=== PATIENT | female | born 1960 | race Caucasian/White ===

== ENCOUNTER 2016-07-21 11:08 | Emergency (ER) | END 2016-07-21 15:00 | disposition home or self-care (01) | DX: M54.2 Cervicalgia (principal); I10 Essential (primary) hypertension; E11.9 Type 2 diabetes mellitus without complications | CPT/HCPCS: 70450; 72125; 93005; Z7502; Z7610 ==

== ENCOUNTER 2018-12-13 16:47 | Emergency (ER) | payer BC ==
[~2018-12-13] VITALS: Ht 160 cm; Wt 77.2 kg
[~2018-12-13 16:47] MED LIST: CEPH-443 PO; CYCL10TA7 PO
[2018-12-13 16:51] VITALS: Ht 160 cm; Wt 77.2 kg
--- NOTE | 2018-12-13 19:05 | ERD ---
ER Documentation Chief Complaint Chief Complaint chest pain today , feels her pressure is low , rt foot numbness x few days HPI 58-year-old woman here with multiple complaints including left-sided chest pain sharp, nonradiating nonexertional beginning today associated with some dizziness, it was unprovoked and resolved spontaneously after about 10 minutes. She is also here with complaints of paresthesias to her legs bilaterally and pain in her hands throughout the day times a few months. She has had no weight loss, no fevers or chills, no cough, no URI symptoms, no abdominal pain, no vomiting or diarrhea ROS All systems reviewed and are negative except as per history of present illness. Medications Home Meds Active Scripts Cephalexin* (Keflex*) 500 Mg Capsule, 500 MG PO TID for 7 Days, CAP Prov:LOUIE SEO MD 12/13/18 Cyclobenzaprine Hcl* (Cyclobenzaprine Hcl*) 10 Mg Tablet, 10 MG PO TID PRN for PAIN, #15 TAB Prov:ISHMAEL ANDERSON 07/21/16 Allergies Allergies: Coded Allergies: No Known Allergies (Verified Allergy, Unknown, 12/13/18) PMhx/Soc Hypertension diabetes History of Surgery: No Anesthesia Reaction: No Hx Neurological Disorder: No Hx Respiratory Disorders: No Hx Cardiac Disorders: Yes (HTN) Hx Psychiatric Problems: No Hx Miscellaneous Medical Probl: Yes (DIABETES) Hx Alcohol Use: No Hx Substance Use: No Hx Tobacco Use: No FmHx Family History: No diabetes Physical Exam Vitals Vital Signs Date Temp Pulse Resp B/P (MAP) Pulse Ox O2 O2 Flow FiO2 Time Delivery Rate 12/13/18 84 18 115/63 100 Room Air 20:00 (80) 12/13/18 98.7 82 18 140/81 99 Room Air 19:25 (100) 12/13/18 98.7 92 18 147/70 99 16:51 (95) Physical Exam Const: No acute distress, afebrile, well-developed will nourished Resp: Clear to auscultation bilaterally Cardio: Regular rate and rhythm, no murmurs Abd: Soft, non tender, non distended. Normal bowel sounds Skin: No petechiae or rashes, no lacerations or hematomas Back: No midline or flank tenderness Ext: No cyanosis, or edema, calves symmetrical, distal pulses equal bilateral, Neur: Awake and alert x3, no focal deficits or facial asymmetry, pupils equal round reactive to light Psych: Normal Mood and Affect Result Diagram: 12/13/18191212/13/181912 Results 24 hrs Laboratory Tests Test 12/13/18 19:13 White Blood Count 10.4 10^3/ul Red Blood Count 4.97 10^6/ul Hemoglobin 14.5 g/dl Hematocrit 44.4 % Mean Corpuscular Volume 89.3 fl Mean Corpuscular Hemoglobin 29.2 pg Mean Corpuscular Hemoglobin Concent 32.7 g/dl Red Cell Distribution Width 13.0 % Platelet Count 303 10^3/UL Mean Platelet Volume 10.9 fl Immature Granulocytes % 0.300 % Neutrophils % 51.3 % Lymphocytes % 39.8 % Monocytes % 6.7 % Eosinophils % 1.2 % Basophils % 0.7 % Nucleated Red Blood Cells % 0.0 /100WBC Immature Granulocytes # 0.030 10^3/ul Neutrophils # 5.3 10^3/ul Lymphocytes # 4.1 10^3/ul Monocytes # 0.7 10^3/ul Eosinophils # 0.1 10^3/ul Basophils # 0.1 10^3/ul Nucleated Red Blood Cells # 0.0 10^3/ul Urine Color YELLOW Urine Clarity CLOUDY Urine pH 7.0 Urine Specific Cadet 1.011 Urine Ketones NEGATIVE mg/dL Urine Nitrite NEGATIVE mg/dL Urine Bilirubin NEGATIVE mg/dL Urine Urobilinogen NEGATIVE mg/dL Urine Leukocyte Esterase 2+ Barbi/ul Urine Microscopic RBC 1 /HPF Urine Microscopic WBC 12 /HPF Urine Squamous Epithelial Cells MANY /HPF Urine Amorphous Crystals MODERATE /HPF Urine Bacteria FEW /HPF Urine Hemoglobin NEGATIVE mg/dL Urine Glucose NEGATIVE mg/dL Urine Total Protein NEGATIVE mg/dl Sodium Level 139 mmol/L Potassium Level 4.2 mmol/L Chloride Level 101 mmol/L Carbon Dioxide Level 29 mmol/L Anion Gap 9 Blood Urea Nitrogen 15 mg/dl Creatinine 0.62 mg/dl Est Glomerular Filtrat Rate mL/min > 60 mL/min Glucose Level 101 mg/dl Calcium Level 9.9 mg/dl Total Bilirubin 0.5 mg/dl Direct Bilirubin 0.00 mg/dl Indirect Bilirubin 0.5 mg/dl Aspartate Amino Transf (AST/SGOT) 22 IU/L Alanine Aminotransferase (ALT/SGPT) 35 IU/L Alkaline Phosphatase 70 IU/L Troponin I < 0.012 ng/ml Total Protein 8.3 g/dl Albumin 4.8 g/dl Globulin 3.50 g/dl Albumin/Globulin Ratio 1.37 Lipase 87 U/L Current Medications Medications Dose Sig/Viraj Start Time Status Last (Trade) Ordered Route PRN Stop Time Admin Dose Reason Admin Sodium 500 ml @ Q1H STAT 12/13/18 DC Chloride 500 mls/hr IV 19:08 12/13/18 20:07 Ketorolac 15 mg ONCE STAT 12/13/18 DC Tromethamine IV 19:08 (Toradol) 12/13/18 19:15 Ceftriaxone 50 ml @ ONCE ONCE 12/13/18 DC 12/13/18 Sodium 100 mls/hr IVPB 20:00 20:05 12/13/18 20:29 Procedures/MDM IV line was established 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 Patient was afebrile EKG performed, read by me revealed a normal sinus rhythm 83 bpm, normal axis, narrow QRS complex, no concerning ST elevations or depressions noted Chest X-ray 1V Interpreted by me: Soft Tissue: No acute abnormalities Bones: No acute abnormalities Mediastinum/Cardiac Silhouette/Lungs: No acute abnormalities I administered 500 cc normal saline IV, and Toradol 15mg IV CBC and electrolytes are normal, liver function tests were normal, troponin was negative, urine analysis was positive for infection. I treated the patient here with ceftriaxone 1 g IV. Patient's vital signs are normal and she feels well, she will be discharged with a prescription for antibiotics and I recommended she follow-up with her PMD. Differential diagnoses considered, included but not limited to acute coronary syndrome, pulmonary embolism, aortic dissection, abdominal aortic aneurysm, sepsis, stroke, meningitis, encephalitis, pneumonia, appendicitis, cholecystitis, bowel obstruction, pyelonephritis, nephrolithiasis, cystitis, as well as metabolic, hematologic, and electrolyte abnormalities. As well as abs cess, cellulitis, fractures, and dislocations. Patient feels much better at this time, and vital signs are normal, symptoms have improved. I did give strict instructions to return to the ED if symptoms continue or worsen, patient will otherwise follow-up with primary care physician. Patient understood instructions and agreed to plan. Disclaimer: Inadvertent spelling and grammatical errors are likely due to EHR/dictation software use and do not reflect on the overall quality of patient care. Also, please note that the electronic time recorded on this note does not necessarily reflect the actual time of the patient encounter. Departure Diagnosis: Primary Impression: Chest pain Chest pain type: unspecified Qualified Codes: R07.9 - Chest pain, unspecified Additional Impressions: Peripheral neuropathy Peripheral neuropathy type: polyneuropathy associated with underlying disease Qualified Codes: G63 - Polyneuropathy in diseases classified elsewhere Acute UTI Condition: Good LOUIE SEO MD Dec 13, 2018 19:05
[2018-12-13] MEDS ORDERED: SOD CHLORIDE 0.9% 500 ML IV STA (19:08)
[2018-12-13] MEDS ORDERED: KETOROLAC 15 MG INJ IV STA (19:08)
[2018-12-13 20:00] VITALS: BP 115/63; PULSE 84; RESP 18
[2018-12-13] MEDS ORDERED: CEFTRIAXONE 1 GM/50 ML (PMX) 50 ML IVPB ONE (20:00)
== END 2018-12-13 20:54 | disposition home or self-care (01) ==
LOC: E/R 16:47
DX: R07.9 Chest pain, unspecified (principal); G63 Polyneuropathy in diseases classified elsewhere; N39.0 Urinary tract infection, site not specified; I10 Essential (primary) hypertension; E11.9 Type 2 diabetes mellitus without complications
CPT/HCPCS: 36415; 71045; 80053; 81001; 83690; 84484; 85025; 93005; 96374; 99285; J0696; J7040